=== PATIENT | female | born 1970 | race Caucasian/White ===

== ENCOUNTER 2020-11-24 14:35 | Emergency (ER) | payer OTHER ==
[~2020-11-24] VITALS: Ht 167.6 cm; Wt 63.5 kg
[2020-11-24 14:38] VITALS: BP 117/75
[2020-11-24] MEDS ORDERED: KETOROLAC 30 MG/ML VIAL IM ONE (15:15)
[2020-11-24] MEDS ORDERED: HYDR-4490 PO (15:38)
[2020-11-24] MEDS ORDERED: IBUP-2213 PO ×2 (15:38→16:58)
[2020-11-24 15:47] VITALS: BP 117/75
[2020-11-24] MEDS ORDERED: ACET-8386 PO (16:58)
== END 2020-11-24 15:48 | disposition home or self-care (01) ==
LOC: MED 14:35
DX: M54.31 Sciatica, right side (principal); Z79.899 Other long term (current) drug therapy
CPT/HCPCS: 81002; 96372; 99283; J1885